=== PATIENT | female | born 1990 | race African-American/Black ===

== ENCOUNTER 2016-09-13 22:25 | Emergency (ER) | payer MEDICAID ==
[~2016-09-13] VITALS: Ht 160 cm; Wt 50.0 kg
[~2016-09-13 22:25] MED LIST: AUGM875T PO; DICL75 PO; VIST25CA PO
[2016-09-13 22:26] VITALS: BP 128/72; PULSE 98; RESP 18; TEMP 97.9; O2SAT 98
[2016-09-13] MEDS ORDERED: SODIUM CHLOR 0.9% 1000 ML INJ 1,000 ML IV ONE (22:45)
[2016-09-13] MEDS ORDERED: ONDANSETRON HCL 4 MG/2 ML VIAL IV PUSH ONE (22:45)
[2016-09-13] MEDS ORDERED: HYDROmorphone HCL PF 1 MG/ML VIAL IV PUSH ONE (22:45)
[2016-09-13] MEDS ORDERED: HYDROmorphone HCL PF 1 MG/ML VIAL IVS ONE (23:00)
[2016-09-13] MEDS ORDERED: BACITRACIN TOP OINT 15 GM TUBE TOPICAL ONE (23:15)
[2016-09-13] MEDS ORDERED: KETAMINE HCL 500 MG/5 ML VIAL IV PUSH ONE (23:45)
--- NOTE | 2016-09-13 23:52 | PD ---
HPI Chief Complaint: Burn Time Seen by Provider: 22:40 Travel History International Travel<30 days: No Contact w/Intl Traveler<30days: No Traveled to known affect area: No History of Present Illness HPI Is a 26-year-old right handed woman who presents to the emergency department with an acute burn to her right hand. She was working with vegetable oil when she scolded him for her right hand. She also burned a small area on her left foot. She complains of severe pain. This happened just prior to arrival. She is up-to-date on her tetanus. No other medical history. No other complaints. History Past Medical History Medical History: Denies Significant Hx Influenza Vaccination: No LMP: August 31 2016 : 3 Para: 3 Social History Alcohol Use: No Tobacco Use: No Allergies-Medications (Allergen,Severity, Reaction): Coded Allergies: *MDRO Multi-Drug Resistant Organism (Verified Allergy, Unknown, 09/13/16) MRSA Reported Meds & Prescriptions Reported Meds & Active Scripts Active No Active Prescriptions or Reported Medications Review of Systems Except as stated in HPI: all other systems reviewed are Neg Physical Exam Narrative GENERAL: Well-appearing 26 year-old woman, in obvious discomfort, nontoxic. SKIN: Warm and dry. CARDIOVASCULAR: Warm and well perfused. RESPIRATORY: Normal rate and effort. MUSCULOSKELETAL: Focused examination of the right hand reveals small area of blistering burning on the medial side of the thumb, probably secondary. Larger area of burn on the dorsum of the index finger, involving the proximal and mid phalanx extending over the IP joint and wrapping around to the underside of the finger involving the IP joint. The dorsal aspect of the hand is clearly third degree with blanching of the skin, insensate skin. The underside is more second -degree with blistering. There is also a small area of burn just on the medial aspect of the IP joint on the third digit with thick skin, blistering. Patient claims of decreased sensation in the same area that could represent third- degree burn. NEUROLOGICAL: Awake and alert. No gross deficits. Data Data Last Documented VS Vital Signs Date Time Temp Pulse Resp B/P Pulse Ox O2 Delivery O2 Flow Rate FiO2 09/13/16 22:26 97.9 98 18 128/72 98 Room Air Orders Iv Access Insert/Monitor (09/13/16 22:44) Hydromorphone Pf Inj (Dilaudid Pf Inj) (09/13/16 22:45) Ondansetron Inj (Zofran Inj) (09/13/16 22:45) Sodium Chlor 0.9% 1000 Ml Inj (Ns 1000 M (09/13/16 22:45) Hydromorphone Pf Inj (Dilaudid Pf Inj) (09/13/16 23:00) Bacitracin Oint (Baciguent Oint) (09/13/16 23:15) Ketamine Inj (Ketalar Inj) (09/13/16 23:45) MDM Medical Decision Making Medical Screen Exam Complete: Yes Emergency Medical Condition: Yes Differential Diagnosis Second-degree burn, third-degree burn, burn over joint Narrative Course Medical decision making Is a 26-year-old woman who presents to the emergency department with a burn to her right hand. She is evidence of third-degree burn overlying the IP joint on the index finger. I spoke with Dr. Herrera at [facility], burn center. Recommend evaluation tonight given third-degree burn on her right hand. Will be transferred for further evaluation. Patient was placed in the burn dressing with Xeroform gauze, bacitracin. Tetanus is up-to-date. Patient had severe pain, unrelieved despite 2 mg of IV Dilaudid. She was given 0.1 mg/kg of ketamine to assist in pain control. She'll be transported by EMS. Diagnosis Primary Impression: Third degree burn of right hand including fingers Scripts No Active Prescriptions or Reported Meds Disposition: 70 TRANSFER TO OTHER FACILITY Yovany Gilmore MD Sep 13, 2016 23:52
[2016-09-14] MEDS ORDERED: ONDANSETRON HCL 4 MG/2 ML VIAL IV ONE
== END 2016-09-14 02:28 | disposition short-term general hospital (02) ==
LOC: NEPE 22:25
DX: T23.391A Burn of third degree of multiple sites of right wrist and hand, initial encounter (principal); T25.022A Burn of unspecified degree of left foot, initial encounter; X10.2XXA Contact with fats and cooking oils, initial encounter
CPT/HCPCS: 96374; 96375; 96376; 99284; J1170; J2405; J7030

== ENCOUNTER 2016-12-09 11:46 | Emergency (ER) | payer MEDICAID ==
[~2016-12-09] VITALS: Ht 160 cm; Wt 50.5 kg
[2016-12-09 11:47] VITALS: BP 121/73; PULSE 86; RESP 14; TEMP 98.2; O2SAT 98
[2016-12-09] MEDS ORDERED: SODIUM CHLOR 0.9% 1000 ML INJ 1,000 ML IV ONE (12:05)
[2016-12-09] MEDS ORDERED: SODIUM CHLORIDE 0.9% FLUSH 10 ML FLUSH IVF PRN (12:15)
[2016-12-09] MEDS ORDERED: ONDANSETRON HCL 4 MG/2 ML VIAL IVP ONE (12:15)
--- NOTE | 2016-12-09 12:18 | PD ---
HPI Chief Complaint: GI Complaint Time Seen by Provider: 12:14 Travel History International Travel<30 days: No Contact w/Intl Traveler<30days: No Traveled to known affect area: No History of Present Illness HPI Patient is a 26-year-old female presenting to emergency for evaluation of nausea , vomiting, lightheadedness. Patient states her symptoms started approximately 945 this morning where she was at work. Patient works overnight at a [employer] facility, she went to her second job this morning and felt fine until that time. She does report eating at [employer] this morning she states this is a normal habit for her. She denies any abdominal pain, fevers, dysuria. She is otherwise healthy. Patient reports having a bilateral tubal ligation. [facility] Past Medical History Medical History: Denies Significant Hx Anemia: Yes Immunizations Current: Yes Tetanus Vaccination: Unknown ?: Not LMP: 11/29/16 : 3 Para: 3 Miscarriage: 0 : 0 Tubal Ligation: Yes Past Surgical History Section: Yes (x2) Other Surgery: Yes (lip, burn on rt index finger) Social History Alcohol Use: No Tobacco Use: No Substance Use: No Allergies-Medications (Allergen,Severity, Reaction): Coded Allergies: *MDRO Multi-Drug Resistant Organism (Verified Allergy, Unknown, 09/13/16) MRSA Reported Meds & Prescriptions Reported Meds & Active Scripts Active No Active Prescriptions or Reported Medications Review of Systems Except as stated in HPI: all other systems reviewed are Neg HENT: Positive: Lightheadedness Cardiovascular: No: Chest Pain or Discomfort Respiratory: No: Shortness of Breath Gastrointestinal: Positive: Nausea, Vomiting, No: Diarrhea, Abdominal Pain, Changes in Bowel Habits, Loss of Appetite Genitourinary: No: Dysuria Musculoskeletal: Positive: Myalgias Neurologic: Positive: Dizziness Physical Exam Narrative GENERAL: Thin, well-developed, alert female. Resting comfortably in no acute distress. SKIN: Focused skin assessment warm/dry. HEAD: Atraumatic. Normocephalic. EYES: Pupils equal and round. No scleral icterus. No injection or drainage. ENT: No nasal bleeding or discharge. Mucous membranes pink and moist. NECK: Trachea midline. No JVD. CARDIOVASCULAR: Regular rate and rhythm. No murmur appreciated. RESPIRATORY: No accessory muscle use. Clear to auscultation. Breath sounds equal bilaterally. GASTROINTESTINAL: Abdomen soft, non-tender, nondistended. Hepatic and splenic margins not palpable. MUSCULOSKELETAL: No obvious deformities. No clubbing. No cyanosis. No edema. NEUROLOGICAL: Awake and alert. No obvious cranial nerve deficits. Motor grossly within normal limits. Normal speech. PSYCHIATRIC: Appropriate mood and affect; insight and judgment normal. Data Data Last Documented VS Vital Signs Date Time Temp Pulse Resp B/P Pulse Ox O2 Delivery O2 Flow Rate FiO2 12/09/16 11:47 98.2 86 14 121/73 98 Orders Complete Blood Count With Diff (12/09/16 12:05) Comprehensive Metabolic Panel (12/09/16 12:05) Urinalysis - C+S If Indicated (12/09/16 12:05) Lipase (12/09/16 12:05) Iv Access Insert/Monitor (12/09/16 12:05) Ecg Monitoring (12/09/16 12:05) Oximetry (12/09/16 12:05) Ondansetron Inj (Zofran Inj) (12/09/16 12:15) Sodium Chlor 0.9% 1000 Ml Inj (Ns 1000 M (12/09/16 12:05) Sodium Chloride 0.9% Flush (Ns Flush) (12/09/16 12:15) Potassium Chloride (Kcl) (12/09/16 13:00) Labs Laboratory Tests Test 12/09/16 12/09/16 12:20 13:20 White Blood Count 6.7 TH/MM3 Red Blood Count 4.06 MIL/MM3 Hemoglobin 10.6 GM/DL Hematocrit 33.9 % Mean Corpuscular Volume 83.7 FL Mean Corpuscular Hemoglobin 26.2 PG Mean Corpuscular Hemoglobin 31.3 % Concent Red Cell Distribution Width 16.2 % Platelet Count 218 TH/MM3 Mean Platelet Volume 8.2 FL Neutrophils (%) (Auto) 64.6 % Lymphocytes (%) (Auto) 26.6 % Monocytes (%) (Auto) 8.1 % Eosinophils (%) (Auto) 0.2 % Basophils (%) (Auto) 0.5 % Neutrophils # (Auto) 4.4 TH/MM3 Lymphocytes # (Auto) 1.8 TH/MM3 Monocytes # (Auto) 0.5 TH/MM3 Eosinophils # (Auto) 0.0 TH/MM3 Basophils # (Auto) 0.0 TH/MM3 CBC Comment DIFF FINAL Differential Comment Sodium Level 140 MEQ/L Potassium Level 3.3 MEQ/L Chloride Level 107 MEQ/L Carbon Dioxide Level 25.4 MEQ/L Anion Gap 8 MEQ/L Blood Urea Nitrogen 10 MG/DL Creatinine 0.65 MG/DL Estimat Glomerular Filtration 132 ML/MIN Rate Random Glucose 76 MG/DL Calcium Level 8.7 MG/DL Total Bilirubin 0.4 MG/DL Aspartate Amino Transf 17 U/L (AST/SGOT) Alanine Aminotransferase 18 U/L (ALT/SGPT) Alkaline Phosphatase 67 U/L Total Protein 8.1 GM/DL Albumin 4.2 GM/DL Lipase 104 U/L Urine Color YELLOW Urine Turbidity HAZY Urine pH 7.5 Urine Specific [place] 1.017 Urine Protein TRACE mg/dL Urine Glucose (UA) NEG mg/dL Urine Ketones 80 mg/dL Urine Occult Blood NEG Urine Nitrite NEG Urine Bilirubin NEG Urine Urobilinogen LESS THAN 2.0 MG/DL Urine Leukocyte Esterase LARGE Urine RBC 1 /hpf Urine WBC 2 /hpf Urine Squamous Epithelial 11 /hpf Cells Urine Mucus FEW /lpf Microscopic Urinalysis Comment CULT NOT INDICATED MDM Medical Decision Making Medical Screen Exam Complete: Yes Emergency Medical Condition: Yes Interpretation(s) Vital Signs Date Time Temp Pulse Resp B/P Pulse Ox O2 Delivery O2 Flow Rate FiO2 12/09/16 11:47 98.2 86 14 121/73 98 Differential Diagnosis Food poisoning versus gastroenteritis versus cholecystitis versus viral syndrome versus electrolyte abnormality versus other Narrative Course Patient is a 26-year-old female that presented to emergency department for evaluation of acute onset of nausea and vomiting at work this morning. Patient' s vital signs are stable, labs ordered and pending. Abdominal exam is benign. Labs reviewed, no acute findings identified. Urinalysis unremarkable. Patient was given IV fluids and Zofran. Upon reassessment patient reports improvement in her symptoms. She states that she feels much better. She was encouraged to maintain a bland, low residue diet increasing as tolerated. She will be given a prescription for Zofran. She is encouraged to maintain adequate fluid intake. She was encouraged to return to emergency department immediately for any new or worsening symptoms. She verbalized understanding of instructions. Patient stable for discharge. Diagnosis Primary Impression: Nausea and vomiting Qualified Code: R11.2 - Non-intractable vomiting with nausea, unspecified vomiting type Referrals: Primary Care Physician Patient Instructions: Acute Nausea and Vomiting (ED), General Instructions Additional Instructions: Follow-up with your primary doctor Plan, low residue diet increase as tolerated Med/Other Pt SpecificInfo: Prescription(s) given Scripts Ondansetron Odt (Zofran Odt)4 Mg Tab4 Mg SL Q6HR PRN (Nausea/Vomiting) 3 Days Ref 0 Prov:Andie Lemus 12/09/16 Disposition: 01 DISCHARGE HOME Condition: Stable Andie Lemus Dec 09, 2016 12:18
[2016-12-09 12:31] LABS: AUTOMATED NEUTROPHIL # 4.4 TH/MM3 (1.8-7.7); BASOPHIL % 0.5 % (0.0-2.0); EOSINOPHIL % 0.2 % (0.0-4.0); HEMATOCRIT 33.9 % (35.0-46.0); HEMO FLAGS DIFF FINAL; LYMPH % 26.6 % (9.0-44.0); LYMPHOCYTE # 1.8 TH/MM3 (1.0-4.8); MEAN CELL VOLUME 83.7 FL (80.0-100.0); MEAN CORPUSCULAR HEMOGLOBIN 26.2 PG (27.0-34.0); MEAN CORPUSCULAR HGB CONC 31.3 % (32.0-36.0); MONO % 8.1 % (0.0-8.0); NEUT % 64.6 % (16.0-70.0); PLATELET COUNT 218 TH/MM3 (150-450); RED BLOOD COUNT 4.06 MIL/MM3 (4.00-5.30); RED CELL DISTRIBUTION WIDTH 16.2 % (11.6-17.2); WHITE BLOOD COUNT 6.7 TH/MM3 (4.0-11.0)
[2016-12-09 12:53] LABS: ALT (GPT) 18 U/L (10-53); ANION GAP 8 MEQ/L (5-15); AST (GOT) 17 U/L (15-37); BICARBONATE 25.4 MEQ/L (21.0-32.0); BLOOD UREA NITROGEN 10 MG/DL (7-18); CHLORIDE 107 MEQ/L (98-107); GLOMERULAR FILTRATION RATE 132 ML/MIN (>89); POTASSIUM 3.3 MEQ/L (3.5-5.1); SODIUM (NA) 140 MEQ/L (136-145)
[2016-12-09 12:55] LABS: ALKALINE PHOSPHATASE 67 U/L (45-117); TOTAL BILIRUBIN ADULT 0.4 MG/DL (0.2-1.0)
[2016-12-09] MEDS ORDERED: POTASSIUM CHLORIDE 10 MEQ CONTROLLED RELEASE TAB PO ONE (13:00)
[2016-12-09 13:26] LABS: BLOOD, URINE NEG (NEG); COMMENT (UR) CULT NOT INDICATED; CULTURE IF INDICATED CULT NOT INDICATED; GLUCOSE,URINE NEG (NEG); KETONE, URINE 80 mg/dL (NEG); MUCUS URINE FEW /lpf (OCC); NITRITE,URINE NEG (NEG); PH, URINE 7.5 (5.0-8.5); SQUAMOUS EPITHELIAL CELL URINE 11 /hpf (0-5); URINE COLOR YELLOW (YELLW/STRAW)
[2016-12-09] MEDS ORDERED: ZOFR4TAB3 SL (13:48)
[2016-12-09 14:00] VITALS: BP 122/73; PULSE 110; O2SAT 100
== END 2016-12-09 14:25 | disposition home or self-care (01) ==
LOC: NEPD 11:46
DX: R11.2 Nausea with vomiting, unspecified (principal)
CPT/HCPCS: 80053; 81001; 83690; 85025; 96374; 99284; J2405; J7030

== ENCOUNTER 2016-12-14 19:39 | Emergency (ER) | payer MEDICAID ==
[~2016-12-14 19:39] MED LIST changes: -AUGM875T PO; -DICL75 PO; -VIST25CA PO; +ZOFR4TAB3 SL
[2016-12-14 19:42] VITALS: BP 96/51; PULSE 63; RESP 16; TEMP 98.1; O2SAT 100
[2016-12-14] MEDS ORDERED: SODIUM CHLOR 0.9% 1000 ML INJ 1,000 ML IV SCH (20:41)
--- NOTE | 2016-12-14 20:41 | PD ---
HPI Chief Complaint: GI Complaint Time Seen by Provider: 20:33 Travel History International Travel<30 days: No Contact w/Intl Traveler<30days: No Traveled to known affect area: No History of Present Illness HPI HAS CONTINUED TO HAVE NAUSEA/VOMITING CONTINUING AFTER FINISHING ZOFRAN (SEEN ON DECEMBER 09). PATIENT FEELS BETTER AFTER VOMTING, AND DENIES ANY FEVER/DIARRHEA CURRENTLY PFSH Past Medical History Anemia: Yes Immunizations Current: Yes : 3 Para: 3 Miscarriage: 0 : 0 Tubal Ligation: Yes Past Surgical History Section: Yes (x2) Other Surgery: Yes (lip, burn on rt index finger) Social History Alcohol Use: No Tobacco Use: No Substance Use: No Allergies-Medications (Allergen,Severity, Reaction): Coded Allergies: *MDRO Multi-Drug Resistant Organism (Verified Allergy, Unknown, 12/14/16) MRSA Reported Meds & Prescriptions Reported Meds & Active Scripts Active Review of Systems Except as stated in HPI: all other systems reviewed are Neg Gastrointestinal: Positive: Nausea, Vomiting Physical Exam Narrative GENERAL: SKIN: Warm and dry. HEAD: Atraumatic. Normocephalic. EYES: Pupils equal and round. No scleral icterus. No injection or drainage. ENT: No nasal bleeding or discharge. Mucous membranes pink and moist. NECK: Trachea midline. No JVD. CARDIOVASCULAR: Regular rate and rhythm. RESPIRATORY: No accessory muscle use. Clear to auscultation. Breath sounds equal bilaterally. GASTROINTESTINAL: Abdomen soft, MILD EPIG TTP, nondistended. MUSCULOSKELETAL: Extremities without clubbing, cyanosis, or edema. No obvious deformities. NEUROLOGICAL: Awake and alert. No obvious cranial nerve deficits. Motor grossly within normal limits. Five out of 5 muscle strength in the arms and legs. Normal speech. PSYCHIATRIC: Appropriate mood and affect; insight and judgment normal. Data Data Last Documented VS Vital Signs Date Time Temp Pulse Resp B/P Pulse Ox O2 Delivery O2 Flow Rate FiO2 12/14/16 20:47 16 100 Room Air 12/14/16 19:42 98.1 63 96/51 Orders Complete Blood Count With Diff (12/14/16 20:41) Comprehensive Metabolic Panel (12/14/16 20:41) Lipase (12/14/16 20:41) Urinalysis - C+S If Indicated (12/14/16 20:41) Iv Access Insert/Monitor (12/14/16 20:41) Ecg Monitoring (12/14/16 20:41) Oximetry (12/14/16 20:41) NPO (12/14/16 20:41) Morphine Inj (Morphine Inj) (12/14/16 20:45) Ondansetron Inj (Zofran Inj) (12/14/16 20:45) Sodium Chlor 0.9% 1000 Ml Inj (Ns 1000 M (12/14/16 20:41) Ed Urine Pregnancytest Poc (12/14/16 20:41) Labs Laboratory Tests Test 12/14/16 20:40 White Blood Count 7.0 TH/MM3 Red Blood Count 4.09 MIL/MM3 Hemoglobin 10.9 GM/DL Hematocrit 33.9 % Mean Corpuscular Volume 82.7 FL Mean Corpuscular Hemoglobin 26.6 PG Mean Corpuscular Hemoglobin 32.2 % Concent Red Cell Distribution Width 16.8 % Platelet Count 233 TH/MM3 Mean Platelet Volume 8.2 FL Neutrophils (%) (Auto) 72.6 % Lymphocytes (%) (Auto) 19.7 % Monocytes (%) (Auto) 7.3 % Eosinophils (%) (Auto) 0.1 % Basophils (%) (Auto) 0.3 % Neutrophils # (Auto) 5.1 TH/MM3 Lymphocytes # (Auto) 1.4 TH/MM3 Monocytes # (Auto) 0.5 TH/MM3 Eosinophils # (Auto) 0.0 TH/MM3 Basophils # (Auto) 0.0 TH/MM3 CBC Comment DIFF FINAL Differential Comment Sodium Level 139 MEQ/L Potassium Level 3.9 MEQ/L Chloride Level 108 MEQ/L Carbon Dioxide Level 22.2 MEQ/L Anion Gap 9 MEQ/L Blood Urea Nitrogen 9 MG/DL Creatinine 0.61 MG/DL Estimat Glomerular Filtration 142 ML/MIN Rate Random Glucose 90 MG/DL Calcium Level 9.0 MG/DL Total Bilirubin 0.4 MG/DL Aspartate Amino Transf 19 U/L (AST/SGOT) Alanine Aminotransferase 16 U/L (ALT/SGPT) Alkaline Phosphatase 62 U/L Total Protein 8.0 GM/DL Albumin 4.3 GM/DL Lipase 103 U/L [facility] Medical Decision Making Medical Screen Exam Complete: Yes Emergency Medical Condition: Yes Medical Record Reviewed: Yes Differential Diagnosis ENTERITIS V GASTRITIS V DYSPEPTIC SYNDROM V PANCREATITIS V ELECTROLYTE ABNL Narrative Course TODAY IT WAS NOTED THAT PATIENT HAS A SLIGHT NEUTROPHILIA THAT WAS NOT PRESENT BEFORE...NO E/O PANCREATITIS/ELECTROLYTE ABNL/DEHYDRATION/ AT THIS POINT Diagnosis Primary Impression: BACTERIAL ENTERITIS Referrals: Rossana Mcrae MD call for appointment TO EVALUATE FOR PRESENCE OF ULCERS OR GASTRITIS WHICH IS SUSPECTED FOR YOU. Additional Instructions: PLEASE COMPLETE TREATMENT AND REFER TO FARNAZ (GI SPECIALIST) Scripts Ondansetron Odt (Zofran Odt)4 Mg Tab4 Mg SL Q6HR PRN (Nausea/Vomiting) #20 TAB Prov:Linden Johnson MD 12/14/16 Metronidazole (Flagyl)500 Mg [id number] Mg PO TID #15 TAB Prov:Linden Johnson MD 12/14/16 Ciprofloxacin 500 Mg [id number] Mg PO BID #10 TAB Prov:Linden Johnson MD 12/14/16 Disposition: 01 DISCHARGE HOME Condition: Stable Linden Johnson MD Dec 14, 2016 20:41
[2016-12-14] MEDS ORDERED: MORPHINE SULFATE 4 MG/ML INJ IV PUSH ONE (20:45)
[2016-12-14] MEDS ORDERED: ONDANSETRON HCL 4 MG/2 ML VIAL IVP ONE (20:45)
[2016-12-14 20:47] VITALS: RESP 16; O2SAT 100
[2016-12-14 21:03] LABS: AUTOMATED NEUTROPHIL # 5.1 TH/MM3 (1.8-7.7); BASOPHIL % 0.3 % (0.0-2.0); EOSINOPHIL % 0.1 % (0.0-4.0); HEMATOCRIT 33.9 % (35.0-46.0); HEMO FLAGS DIFF FINAL; LYMPH % 19.7 % (9.0-44.0); LYMPHOCYTE # 1.4 TH/MM3 (1.0-4.8); MEAN CELL VOLUME 82.7 FL (80.0-100.0); MEAN CORPUSCULAR HEMOGLOBIN 26.6 PG (27.0-34.0); MEAN CORPUSCULAR HGB CONC 32.2 % (32.0-36.0); MONO % 7.3 % (0.0-8.0); NEUT % 72.6 % (16.0-70.0); PLATELET COUNT 233 TH/MM3 (150-450); RED BLOOD COUNT 4.09 MIL/MM3 (4.00-5.30); RED CELL DISTRIBUTION WIDTH 16.8 % (11.6-17.2)
[2016-12-14 21:24] LABS: ANION GAP 9 MEQ/L (5-15); AST (GOT) 19 U/L (15-37); BICARBONATE 22.2 MEQ/L (21.0-32.0); BLOOD UREA NITROGEN 9 MG/DL (7-18); CHLORIDE 108 MEQ/L (98-107); GLOMERULAR FILTRATION RATE 142 ML/MIN (>89); POTASSIUM 3.9 MEQ/L (3.5-5.1); SODIUM (NA) 139 MEQ/L (136-145)
[2016-12-14 21:25] LABS: ALT (GPT) 16 U/L (10-53)
[2016-12-14 21:28] LABS: ALKALINE PHOSPHATASE 62 U/L (45-117); TOTAL BILIRUBIN ADULT 0.4 MG/DL (0.2-1.0)
[2016-12-14] MEDS ORDERED: ZOFR4TAB3 SL (21:56)
[2016-12-14] MEDS ORDERED: METR-1 PO (21:56)
[2016-12-14] MEDS ORDERED: CIPR500T2 PO (21:56)
== END 2016-12-14 23:14 | disposition home or self-care (01) ==
LOC: NEPC 19:39
DX: A04.9 Bacterial intestinal infection, unspecified (principal)
CPT/HCPCS: 80053; 83690; 85025; 96374; 96375; 99284; J2270; J2405; J7030

== ENCOUNTER 2016-12-15 18:08 | Emergency (ER) | payer MEDICAID ==
[~2016-12-15] VITALS: Ht 167.6 cm; Wt 50.0 kg
[~2016-12-15 18:08] MED LIST changes: +CIPR500T2 PO; +METR-1 PO
[2016-12-15 18:10] VITALS: BP 118/55; PULSE 55; RESP 14; TEMP 99.1; O2SAT 100
== END 2016-12-15 22:08 | disposition left against medical advice (07) ==
LOC: NED 18:08
DX: R10.9 Unspecified abdominal pain (principal); Z53.21 Procedure and treatment not carried out due to patient leaving prior to being seen by health care provider
CPT/HCPCS: 99281

== ENCOUNTER 2017-05-14 08:25 | Emergency (ER) | payer MEDICAID ==
[~2017-05-14] VITALS: Ht 160 cm; Wt 52.0 kg
[2017-05-14 08:27] VITALS: BP 102/63; PULSE 104; RESP 14; TEMP 98.9; O2SAT 98
[2017-05-14] MEDS ORDERED: SODIUM CHLOR 0.9% 1000 ML INJ 1,000 ML IV SCH (09:23)
[2017-05-14] MEDS ORDERED: LIDOCAINE VISCOUS 2% SOLN 15 ML UDC PO ONE (09:30)
[2017-05-14] MEDS ORDERED: FAMOTIDINE 20 MG/2 ML VIAL IV PUSH ONE (09:30)
[2017-05-14] MEDS ORDERED: ONDANSETRON HCL 4 MG/2 ML VIAL IVP ONE (09:30)
[2017-05-14] MEDS ORDERED: SODIUM CHLORIDE 0.9% FLUSH 10 ML FLUSH IV FLUSH PRN (09:30)
[2017-05-14] MEDS ORDERED: ALUMINUM/MAGNESIUM/SIMETH 30 ML CUP PO ONE (09:30)
[2017-05-14] MEDS ORDERED: SODIUM CHLOR 0.9% 1000 ML INJ 1,000 ML IV ONE (09:30)
--- NOTE | 2017-05-14 09:32 | PD ---
HPI Chief Complaint: GI Complaint Time Seen by Provider: 09:20 Travel History International Travel<30 days: No Contact w/Intl Traveler<30days: No Traveled to known affect area: No History of Present Illness HPI Patient is a 27-year-old female with history of C-sections in the past, presents to emergency room with complaints of nausea, vomiting and diarrhea. Patient reports that symptoms began yesterday afternoon, reports that she has been unable to keep down any fluids. Patient reports multiple episodes of vomiting and diarrhea, reports diffuse abdominal cramping. Patient reports that prior to her onset of symptoms, her 4-year-old daughter had similar symptoms. Patient denies any fevers, reports chills. Patient denies any recent travels or trips. Patient denies any chest pain or shortness of breath, denies any dysuria, urinary urgency or frequency. Patient with no other complaints at this time. PFSH Past Medical History Anemia: Yes Diminished Hearing: No Genitourinary: Yes Integumentary: Yes (ECZEMA) Immunizations Current: Yes ?: Not LMP: 04/18/17 : 3 Para: 3 Miscarriage: 0 : 0 Tubal Ligation: Yes Past Surgical History Section: Yes (x2) Hysterectomy: No Other Surgery: Yes (lip, burn on rt index finger) Social History Alcohol Use: No Tobacco Use: No (quit 1yr ago) Substance Use: No Allergies-Medications (Allergen,Severity, Reaction): Coded Allergies: *MDRO Multi-Drug Resistant Organism (Verified Allergy, Unknown, 12/14/16) MRSA Reported Meds & Prescriptions Reported Meds & Active Scripts Active Zofran (Ondansetron HCl) 4 Mg Tab 4 Mg PO Q6HR PRN Zofran Odt (Ondansetron Odt) 4 Mg Tab 4 Mg SL Q6HR PRN Flagyl (Metronidazole) 500 Mg Tab 500 Mg PO TID Ciprofloxacin (Ciprofloxacin HCl) 500 Mg Tab 500 Mg PO BID Review of Systems General / Constitutional: Positive: Chills, No: Fever Eyes: No: Visual changes HENT: No: Headaches Cardiovascular: No: Chest Pain or Discomfort, Palpitations, Irregular Rhythm, Tachycardia Respiratory: No: Cough, Shortness of Breath, Wheezing Gastrointestinal: Positive: Nausea, Vomiting, Diarrhea, Abdominal Pain, No: Constipation Genitourinary: No: Dysuria Musculoskeletal: No: Pain Skin: No Rash Neurologic: No: Weakness Psychiatric: No: Depression Endocrine: No: Polydipsia Hematologic/Lymphatic: No: Easy Bruising Physical Exam Narrative GENERAL: Moderate distress SKIN: Focused skin assessment warm/dry. HEAD: Atraumatic. Normocephalic. EYES: Pupils equal and round. No scleral icterus. No injection or drainage. ENT: No nasal bleeding or discharge. Mucous membranes pink and moist. NECK: Trachea midline. No JVD. CARDIOVASCULAR: Regular rate and rhythm. No murmur appreciated. RESPIRATORY: No accessory muscle use. Clear to auscultation. Breath sounds equal bilaterally. GASTROINTESTINAL: Abdomen soft, non-tender, nondistended. Hepatic and splenic margins not palpable. MUSCULOSKELETAL: No obvious deformities. No clubbing. No cyanosis. No edema. NEUROLOGICAL: Awake and alert. No obvious cranial nerve deficits. Motor grossly within normal limits. Normal speech. PSYCHIATRIC: Appropriate mood and affect; insight and judgment normal. Data Data Last Documented VS Vital Signs Date Time Temp Pulse Resp B/P (MAP) Pulse Ox O2 Delivery O2 Flow Rate FiO2 05/14/17 08:27 98.9 104 14 102/63 (76) 98 Orders Orders Complete Blood Count With Diff (05/14/17 09:23) Comprehensive Metabolic Panel (05/14/17 09:23) Urinalysis - C+S If Indicated (05/14/17 09:23) Iv Access Insert/Monitor (05/14/17 09:23) Ondansetron Inj (Zofran Inj) (05/14/17 09:30) Sodium Chlor 0.9% 1000 Ml Inj (Ns 1000 M (05/14/17 09:23) Sodium Chloride 0.9% Flush (Ns Flush) (05/14/17 09:30) Famotidine Inj (Pepcid Inj) (05/14/17 09:30) Al-Mag Hy-Si 40-40-4 Mg/Ml Liq (Mag-Al P (05/14/17 09:30) Lidocaine 2% Viscous (Xylocaine 2% Visco (05/14/17 09:30) Ed Urine Pregnancytest Poc (05/14/17 09:23) Sodium Chlor 0.9% 1000 Ml Inj (Ns 1000 M (05/14/17 09:30) Prochlorperazine Inj (Compazine Inj) (05/14/17 12:00) Dicyclomine (Bentyl) (05/14/17 12:00) Labs Laboratory Tests Test 05/14/17 09:40 05/14/17 11:10 White Blood Count 8.8 TH/MM3 Red Blood Count 4.46 MIL/MM3 Hemoglobin 12.4 GM/DL Hematocrit 38.5 % Mean Corpuscular Volume 86.4 FL Mean Corpuscular Hemoglobin 27.9 PG Mean Corpuscular Hemoglobin Concent 32.2 % Red Cell Distribution Width 16.6 % Platelet Count 263 TH/MM3 Mean Platelet Volume 8.2 FL Neutrophils (%) (Auto) 89.7 % Lymphocytes (%) (Auto) 5.8 % Monocytes (%) (Auto) 4.3 % Eosinophils (%) (Auto) 0.0 % Basophils (%) (Auto) 0.2 % Neutrophils # (Auto) 7.9 TH/MM3 Lymphocytes # (Auto) 0.5 TH/MM3 Monocytes # (Auto) 0.4 TH/MM3 Eosinophils # (Auto) 0.0 TH/MM3 Basophils # (Auto) 0.0 TH/MM3 CBC Comment DIFF FINAL Differential Comment Blood Urea Nitrogen 12 MG/DL Creatinine 0.75 MG/DL Random Glucose 88 MG/DL Total Protein 8.5 GM/DL Albumin 4.3 GM/DL Calcium Level 8.7 MG/DL Alkaline Phosphatase 72 U/L Aspartate Amino Transf (AST/SGOT) 19 U/L Alanine Aminotransferase (ALT/SGPT) 21 U/L Total Bilirubin 0.9 MG/DL Sodium Level 137 MEQ/L Potassium Level 3.7 MEQ/L Chloride Level 105 MEQ/L Carbon Dioxide Level 26.0 MEQ/L Anion Gap 6 MEQ/L Estimat Glomerular Filtration Rate 111 ML/MIN Urine Color YELLOW Urine Turbidity CLEAR Urine pH 6.0 Urine Specific [place] 1.021 Urine Protein NEG mg/dL Urine Glucose (UA) NEG mg/dL Urine Ketones 10 mg/dL Urine Occult Blood NEG Urine Nitrite NEG Urine Bilirubin NEG Urine Urobilinogen LESS THAN 2.0 MG/DL Urine Leukocyte Esterase NEG Urine RBC 1 /hpf Urine Squamous Epithelial Cells <1 /hpf Urine Mucus MANY /lpf Microscopic Urinalysis Comment CULT NOT INDICATED MDM Medical Decision Making Medical Screen Exam Complete: Yes Emergency Medical Condition: Yes Medical Record Reviewed: Yes Interpretation(s) Vital Signs Date Time Temp Pulse Resp B/P (MAP) Pulse Ox O2 Delivery O2 Flow Rate FiO2 05/14/17 08:27 98.9 104 14 102/63 (08) 78 Differential Diagnosis Gastritis, gastroenteritis, dehydration, electrolyte abnormality, viral syndrome Narrative Course Patient is a 27-year-old female who presents to emergency room complaints of nausea, vomiting and diarrhea for the past 2 days. She reports that her 4-year- old daughter was recently sick with a GI bug prior to the onset of her symptoms. Patient reports that she has been unable to keep down any fluids for the past 2 days, patient here for hydration and antiemetics. During the course of the patients emergency department visit, the patients history, examination, and differential diagnosis were reviewed with the patient. The patient was placed on a monitoring and evaluation advisor with oximetry and frequent blood pressure monitoring. The patient had an IV access obtained and blood work sent for analysis. The patient was initially provided with IV fluids, IV Zofran as well as IV Pepcid. GI cocktail was also provided for her. The patients laboratory studies were reviewed and remarkable for: CBC & BMP Diagram 05/14/17 09:40 Total Protein 8.5 H, Albumin 4.3, Calcium Level 8.7, Alkaline Phosphatase 72, Aspartate Amino Transf (AST/SGOT) 19, Alanine Aminotransferase (ALT/SGPT) 21, Total Bilirubin 0.9 Patient re-evaluated, still feeling nauseous, Compazine administered Patient reevaluated, patient feeling better after Compazine was administered. Abdomen is soft, nontender, nondistended, no peritoneal signs, patient will follow up with her pcp and will return to ER as needed. Signs and symptoms of acute abdomen was reviewed with patient and her family members. Patient understands when to return to the ER. Patient thankful for care Diagnosis Primary Impression: Nausea, vomiting and diarrhea Patient Instructions: General Instructions Additional Instructions: Please eat a bland diet and drink plenty of fluids Please follow up with your primary care doctor in 2-3 days Return to the ER if symptoms worsen or progress Return to the ER as needed Med/Other Pt SpecificInfo: Prescription(s) given Scripts Ondansetron (Zofran) 4 Mg Tab 4 MG PO Q6HR Y for NAUSEA OR VOMITING, #20 TAB 0 Refills Prov: Bhavya Vega DO 05/14/17 Disposition: 01 DISCHARGE HOME Condition: Stable Bhavya Vega DO May 14, 2017 09:32
[2017-05-14 10:05] LABS: AUTOMATED NEUTROPHIL # 7.9 TH/MM3 (1.8-7.7); BASOPHIL % 0.2 % (0.0-2.0); HEMATOCRIT 38.5 % (35.0-46.0); HEMO FLAGS DIFF FINAL; LYMPH % 5.8 % (9.0-44.0); LYMPHOCYTE # 0.5 TH/MM3 (1.0-4.8); MEAN CELL VOLUME 86.4 FL (80.0-100.0); MEAN CORPUSCULAR HEMOGLOBIN 27.9 PG (27.0-34.0); MEAN CORPUSCULAR HGB CONC 32.2 % (32.0-36.0); MONO % 4.3 % (0.0-8.0); NEUT % 89.7 % (16.0-70.0); PLATELET COUNT 263 TH/MM3 (150-450); RED BLOOD COUNT 4.46 MIL/MM3 (4.00-5.30); RED CELL DISTRIBUTION WIDTH 16.6 % (11.6-17.2); WHITE BLOOD COUNT 8.8 TH/MM3 (4.0-11.0)
[2017-05-14 10:31] LABS: ALT (GPT) 21 U/L (10-53); ANION GAP 6 MEQ/L (5-15); AST (GOT) 19 U/L (15-37); BLOOD UREA NITROGEN 12 MG/DL (7-18); CHLORIDE 105 MEQ/L (98-107); GLOMERULAR FILTRATION RATE 111 ML/MIN (>89); POTASSIUM 3.7 MEQ/L (3.5-5.1); SODIUM (NA) 137 MEQ/L (136-145)
[2017-05-14 10:33] LABS: ALKALINE PHOSPHATASE 72 U/L (45-117); TOTAL BILIRUBIN ADULT 0.9 MG/DL (0.2-1.0)
[2017-05-14 11:33] LABS: BLOOD, URINE NEG (NEG); COMMENT (UR) CULT NOT INDICATED; CULTURE IF INDICATED CULT NOT INDICATED; GLUCOSE,URINE NEG (NEG); KETONE, URINE 10 mg/dL (NEG); MUCUS URINE MANY /lpf (OCC); NITRITE,URINE NEG (NEG); SQUAMOUS EPITHELIAL CELL URINE <1 /hpf (0-5); URINE COLOR YELLOW (YELLW/STRAW)
[2017-05-14] MEDS ORDERED: ZOFR4TAB PO (11:51)
[2017-05-14] MEDS ORDERED: DICYCLOMINE HCL 10 MG CAP PO ONE (12:00)
[2017-05-14] MEDS ORDERED: PROCHLORPERAZINE INJ 10 MG/2 ML VIAL IV PUSH ONE (12:00)
== END 2017-05-14 13:05 | disposition home or self-care (01) ==
LOC: NEPD 08:25
DX: R11.2 Nausea with vomiting, unspecified (principal); R19.7 Diarrhea, unspecified
CPT/HCPCS: 80053; 81001; 84703; 85025; 96361; 96374; 96375; 99284; J0780; J2405; J7030

== ENCOUNTER 2017-08-16 07:26 | Emergency (ER) | payer SELFPAY ==
[~2017-08-16] VITALS: Ht 160 cm; Wt 52.0 kg
[~2017-08-16 07:26] MED LIST changes: +ZOFR4TAB PO
[2017-08-16 07:46] VITALS: BP 134/70; PULSE 97; RESP 16; TEMP 98.4; O2SAT 100
[2017-08-16] MEDS ORDERED: SODIUM CHLOR 0.9% 1000 ML INJ 1,000 ML IV SCH (08:01)
[2017-08-16] MEDS ORDERED: SODIUM CHLORIDE 0.9% FLUSH 10 ML FLUSH IV FLUSH PRN (08:15)
[2017-08-16] MEDS ORDERED: ONDANSETRON HCL 4 MG/2 ML VIAL IVP ONE (08:15)
--- NOTE | 2017-08-16 08:18 | PD ---
HPI Chief Complaint: GI Complaint Time Seen by Provider: 08:00 Travel History International Travel<30 days: No Contact w/Intl Traveler<30days: No Traveled to known affect area: No History of Present Illness HPI 27-year-old female presents emergency department with 5 day history of nausea, and intermittent lower abdominal cramping for the past 5 days. Patient states this morning she woke up and had vomitus 1. Patient states she has had her tubes tied in the past. Patient denies significant fever , chills, or urinary symptoms. She denies vaginal discharge. She has no upper respiratory symptoms. No cough or shortness of breath. Pain is intermittent and vague. 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 PFSH Past Medical History Hx Anticoagulant Therapy: No Anemia: Yes Cardiovascular Problems: No Chemotherapy: No Cerebrovascular Accident: No Diabetes: No Diminished Hearing: No Genitourinary: Yes Respiratory: No Integumentary: Yes (ECZEMA) Immunizations Current: Yes ?: Unknown LMP: 07/31/17 : 3 Para: 3 Miscarriage: 0 : 0 Tubal Ligation: Yes Past Surgical History Section: Yes (x2) Hysterectomy: No Other Surgery: Yes (lip, burn on rt index finger) Social History Alcohol Use: No Tobacco Use: No (quit 1yr ago) Substance Use: No Allergies-Medications (Allergen,Severity, Reaction): Coded Allergies: *MDRO Multi-Drug Resistant Organism (Verified Allergy, Unknown, 12/14/16) MRSA Reported Meds & Prescriptions Reported Meds & Active Scripts Active Zofran (Ondansetron HCl) 4 Mg Tab 4 Mg PO Q6HR PRN Zofran (Ondansetron HCl) 4 Mg Tab 4 Mg PO Q6HR PRN Zofran Odt (Ondansetron Odt) 4 Mg Tab 4 Mg SL Q6HR PRN Flagyl (Metronidazole) 500 Mg Tab 500 Mg PO TID Ciprofloxacin (Ciprofloxacin HCl) 500 Mg Tab 500 Mg PO BID Review of Systems Except as stated in HPI: all other systems reviewed are Neg General / Constitutional: Positive: Chills, No: Fever Eyes: No: Visual changes HENT: No: Headaches Cardiovascular: No: Chest Pain or Discomfort Respiratory: No: Shortness of Breath Gastrointestinal: Positive: Nausea, Vomiting, Abdominal Pain, Loss of Appetite , No: Diarrhea Genitourinary: No: Urgency, Frequency, Dysuria, Pelvic Pain, Flank Pain, Discharge, Vaginal Bleeding Musculoskeletal: No: Pain Skin: No Rash Neurologic: No: Weakness Psychiatric: No: Depression Endocrine: No: Polydipsia Hematologic/Lymphatic: No: Easy Bruising Physical Exam Narrative GENERAL: Patient appears mildly ill but not septic. SKIN: Warm and dry. Mildly decreased pallor, normal turgor. No diaphoresis per HEAD: Atraumatic. Normocephalic. EYES: Pupils equal and round. No scleral icterus. No injection or drainage. ENT: No nasal bleeding or discharge. Mucous membranes pink and moist. Pharynx is clear. Airways patent NECK: Trachea midline. Supple nontender. CARDIOVASCULAR: Regular rate and rhythm. RESPIRATORY: No accessory muscle use. Clear to auscultation. Breath sounds equal bilaterally. GASTROINTESTINAL: Abdomen soft, mildly diffusely tender somewhat more prominent in the suprapubic area, nondistended. Hepatic and splenic margins not palpable. No CVA tenderness. MUSCULOSKELETAL: Extremities without clubbing, cyanosis, or edema. No obvious deformities. NEUROLOGICAL: Awake and alert. No obvious cranial nerve deficits. Motor grossly within normal limits. Five out of 5 muscle strength in the arms and legs. Normal speech. PSYCHIATRIC: Appropriate mood and affect; insight and judgment normal. Data Data Last Documented VS Vital Signs Date Time Temp Pulse Resp B/P (MAP) Pulse Ox O2 Delivery O2 Flow Rate FiO2 08/16/17 08:20 16 99 Room Air 08/16/17 07:46 98.4 97 134/70 (91) Orders Orders Complete Blood Count With Diff (08/16/17 08:01) Comprehensive Metabolic Panel (08/16/17 08:01) Urinalysis - C+S If Indicated (08/16/17 08:01) Abdomen, Flat & Upright (08/16/17 ) Iv Access Insert/Monitor (08/16/17 08:01) Ecg Monitoring (08/16/17 08:01) Oximetry (08/16/17 08:01) Ondansetron Inj (Zofran Inj) (08/16/17 08:15) Sodium Chlor 0.9% 1000 Ml Inj (Ns 1000 M (08/16/17 08:01) Sodium Chloride 0.9% Flush (Ns Flush) (08/16/17 08:15) Ed Urine Pregnancytest Poc (08/16/17 08:01) Ondansetron Inj (Zofran Inj) (08/16/17 10:00) Labs Laboratory Tests Test 08/16/17 08:10 08/16/17 08:30 White Blood Count 8.5 TH/MM3 Red Blood Count 4.11 MIL/MM3 Hemoglobin 11.7 GM/DL Hematocrit 35.1 % Mean Corpuscular Volume 85.3 FL Mean Corpuscular Hemoglobin 28.5 PG Mean Corpuscular Hemoglobin Concent 33.4 % Red Cell Distribution Width 17.6 % Platelet Count 239 TH/MM3 Mean Platelet Volume 7.7 FL Neutrophils (%) (Auto) 77.8 % Lymphocytes (%) (Auto) 13.4 % Monocytes (%) (Auto) 8.3 % Eosinophils (%) (Auto) 0.1 % Basophils (%) (Auto) 0.4 % Neutrophils # (Auto) 6.6 TH/MM3 Lymphocytes # (Auto) 1.1 TH/MM3 Monocytes # (Auto) 0.7 TH/MM3 Eosinophils # (Auto) 0.0 TH/MM3 Basophils # (Auto) 0.0 TH/MM3 CBC Comment DIFF FINAL Differential Comment Blood Urea Nitrogen 8 MG/DL Creatinine 0.66 MG/DL Random Glucose 98 MG/DL Total Protein 8.7 GM/DL Albumin 4.4 GM/DL Calcium Level 8.9 MG/DL Alkaline Phosphatase 64 U/L Aspartate Amino Transf (AST/SGOT) 21 U/L Alanine Aminotransferase (ALT/SGPT) 17 U/L Total Bilirubin 0.4 MG/DL Sodium Level 138 MEQ/L Potassium Level 3.7 MEQ/L Chloride Level 107 MEQ/L Carbon Dioxide Level 24.5 MEQ/L Anion Gap 7 MEQ/L Estimat Glomerular Filtration Rate 129 ML/MIN Urine Color LIGHT-YELLOW Urine Turbidity CLEAR Urine pH 7.0 Urine Specific [place] 1.013 Urine Protein NEG mg/dL Urine Glucose (UA) NEG mg/dL Urine Ketones 10 mg/dL Urine Occult Blood NEG Urine Nitrite NEG Urine Bilirubin NEG Urine Urobilinogen LESS THAN 2.0 MG/DL Urine Leukocyte Esterase NEG Urine RBC LESS THAN 1 /hpf Urine WBC 1 /hpf Urine Squamous Epithelial Cells <1 /hpf Urine Hyaline Casts 1 /lpf Urine Mucus FEW /lpf Microscopic Urinalysis Comment CULT NOT INDICATED MDM Medical Decision Making Medical Screen Exam Complete: Yes Emergency Medical Condition: Yes Differential Diagnosis Acute nausea and vomiting. UTI. . Gastroenteritis. Narrative Course Patient is medically stable at time of exam. Labs ordered including CBC, CMP, urinalysis, lipase. IV access is obtained the patient is given 4 mg Zofran IV as well as 1000 mL's normal saline bolus. Abdominal pelvic x-ray ordered flat and upright. Patient is not by urinalysis. CBC, CMP, and urinalysis are within normal limits. Lipase is normal. X-ray is unremarkable for acute process per radiologist. Orthostatics were ordered. Orthostatics unremarkable. Patient is felt to have viral gastroenteritis. Patient will be treated with Zofran 4 mg every 6 hours as needed. Patient is to rest, push fluids, and follow-up if symptoms worsen as needed. Diagnosis Primary Impression: Viral gastroenteritis Patient Instructions: Acute Nausea and Vomiting (ED), Dehydration (ED), General Instructions Additional Instructions: Patient is felt to have viral gastroenteritis. Patient will be treated with Zofran 4 mg every 6 hours as needed. Patient is to rest, push fluids, and follow-up if symptoms worsen as needed. Med/Other Pt SpecificInfo: Prescription(s) given Scripts Ondansetron (Zofran) 4 Mg Tab 4 MG PO Q6HR Y for NAUSEA OR VOMITING, #20 TAB 0 Refills Prov: Rubio Heredia MD 08/16/17 Disposition: 01 DISCHARGE HOME Condition: Stable Franco Lebron Aug 16, 2017 08:18
[2017-08-16 08:20] VITALS: RESP 16; O2SAT 99
[2017-08-16 08:26] LABS: AUTOMATED NEUTROPHIL # 6.6 TH/MM3 (1.8-7.7); BASOPHIL % 0.4 % (0.0-2.0); EOSINOPHIL % 0.1 % (0.0-4.0); HEMATOCRIT 35.1 % (35.0-46.0); HEMOGLOBIN 11.7 GM/DL (11.6-15.3); LYMPH % 13.4 % (9.0-44.0); LYMPHOCYTE # 1.1 TH/MM3 (1.0-4.8); MEAN CELL VOLUME 85.3 FL (80.0-100.0); MEAN CORPUSCULAR HEMOGLOBIN 28.5 PG (27.0-34.0); MEAN CORPUSCULAR HGB CONC 33.4 % (32.0-36.0); MEAN PLATELET VOLUME 7.7 FL (7.0-11.0); MONO % 8.3 % (0.0-8.0); MONOCYTE # 0.7 TH/MM3 (0-0.9); NEUT % 77.8 % (16.0-70.0); PLATELET COUNT 239 TH/MM3 (150-450); RED BLOOD COUNT 4.11 MIL/MM3 (4.00-5.30); RED CELL DISTRIBUTION WIDTH 17.6 % (11.6-17.2); WHITE BLOOD COUNT 8.5 TH/MM3 (4.0-11.0)
[2017-08-16 08:57] LABS: ALBUMIN 4.4 GM/DL (3.4-5.0); ALT (GPT) 17 U/L (10-53); AST (GOT) 21 U/L (15-37); BICARBONATE 24.5 MEQ/L (21.0-32.0); BLOOD UREA NITROGEN 8 MG/DL (7-18); CALCIUM 8.9 MG/DL (8.5-10.1); CHLORIDE 107 MEQ/L (98-107); CREATININE 0.66 MG/DL (0.50-1.00); GLOMERULAR FILTRATION RATE 129 ML/MIN (>89); GLUCOSE,RANDOM 98 MG/DL (74-106); SODIUM (NA) 138 MEQ/L (136-145)
[2017-08-16 08:58] LABS: ALKALINE PHOSPHATASE 64 U/L (45-117); TOTAL BILIRUBIN ADULT 0.4 MG/DL (0.2-1.0); TOTAL PROTEIN 8.7 GM/DL (6.4-8.2)
--- NOTE | 2017-08-16 09:12 | RADRPT ---
EXAM DATE/TIME: 08/16/2017 08:56 [facility] COMPARISON: No previous studies available for comparison. INDICATIONS : Patient has been experiencing dizziness for 5 days and now presents with vomiting. MEDICAL HISTORY : None. SURGICAL HISTORY : section. Tubal ligation. ENCOUNTER: Initial ACUITY: 1 day PAIN SCORE: 3/10 LOCATION: abdomen FINDINGS: Supine and upright views of the abdomen were performed. The abdominal bowel gas pattern is normal. No air fluid levels are seen. No abnormal masses, calcifications, or organomegaly is seen. The visu alized lower lungs are clear. No evidence of free intraperitoneal gas. The osseous structures are u nremarkable. An S1 transitional vertebral body is noted. CONCLUSION: No acute disease. Jaime Asencio MD on August 16, 2017 at 9:09 Board Certified Radiologist. This report was verified electronically.
[2017-08-16 09:30] LABS: BILIRUBIN, URINE NEG (NEG); BLOOD, URINE NEG (NEG); GLUCOSE,URINE NEG (NEG); HYALINE CAST, URINE 1 /lpf (RARE); KETONE, URINE 10 mg/dL (NEG); MUCUS URINE FEW /lpf (OCC); NITRITE,URINE NEG (NEG); SQUAMOUS EPITHELIAL CELL URINE <1 /hpf (0-5); URINE COLOR LIGHT-YELLOW (YELLW/STRAW); URINE LEUKOCYTE ESTERASE NEG (NEG)
[2017-08-16 09:35] VITALS: BP_SYST 110; BP_SYST 116; BP_SYST 141; BP_DIAS 54; BP_DIAS 59; BP_DIAS 63; RESP 16; RESP 18
[2017-08-16] MEDS ORDERED: ZOFR4TAB PO (09:47)
[2017-08-16] MEDS ORDERED: ONDANSETRON HCL 4 MG/2 ML VIAL IV PUSH ONE (10:00)
== END 2017-08-16 10:08 | disposition home or self-care (01) ==
LOC: NEPD 07:26
DX: A08.4 Viral intestinal infection, unspecified (principal); L30.9 Dermatitis, unspecified
CPT/HCPCS: 74019; 80053; 81001; 84703; 85025; 96361; 96374; 96376; 99284; J2405; J7030

== ENCOUNTER 2017-10-22 09:12 | Emergency (ER) | payer SELFPAY ==
[~2017-10-22] VITALS: Ht 160 cm; Wt 50.0 kg
[2017-10-22 09:14] VITALS: BP 134/59; PULSE 91; RESP 16; TEMP 99.3; O2SAT 100
[2017-10-22 10:32] LABS: BILIRUBIN, URINE NEG (NEG); BLOOD, URINE SMALL (NEG); GLUCOSE,URINE NEG (NEG); KETONE, URINE NEG (NEG); MUCUS URINE MOD /lpf (OCC); NITRITE,URINE NEG (NEG); RENAL EPITHELIAL CELLS <1 /hpf; SQUAMOUS EPITHELIAL CELL URINE 4 /hpf (0-5); URINE COLOR YELLOW (YELLW/STRAW); URINE LEUKOCYTE ESTERASE NEG (NEG)
--- NOTE | 2017-10-22 11:08 | PD ---
HPI Chief Complaint: Abdominal Pain Time Seen by Provider: 09:22 Travel History International Travel<30 days: No Contact w/Intl Traveler<30days: No Traveled to known affect area: No History of Present Illness HPI This is a 27-year-old male who presents to the emergency department with lower abdominal cramping, feeling like a heavy period, intermittent associated with irregular menses and some vaginal discharge, intermittent. She was concerned she might be . She says that her menstrual cycle was longer and her blood was shoe laster than normal. She denies any lightheadedness or dizziness. She has had a bilateral tubal ligation in the past. She has had one sexual partner in the past 6 months. PFSH Past Medical History Hx Anticoagulant Therapy: No Anemia: Yes Cardiovascular Problems: No Chemotherapy: No Cerebrovascular Accident: No Diabetes: No Diminished Hearing: No Genitourinary: Yes Respiratory: No Integumentary: Yes (ECZEMA) Immunizations Current: Yes Tetanus Vaccination: < 5 Years Influenza Vaccination: No ?: Not LMP: 5 days ago : 3 Para: 3 Miscarriage: 0 : 0 Tubal Ligation: Yes Past Surgical History Cardiac Surgery: No Section: Yes (x2) Hysterectomy: No Other Surgery: Yes (lip, burn on rt index finger) Social History Alcohol Use: No Tobacco Use: Yes Substance Use: No Allergies-Medications (Allergen,Severity, Reaction): Coded Allergies: No Known Allergies (Unverified , 10/22/17) Reported Meds & Prescriptions Reported Meds & Active Scripts Active No Active Prescriptions or Reported Medications Review of Systems Except as stated in HPI: all other systems reviewed are Neg Physical Exam Narrative GENERAL:Well appearing, no acute distress SKIN: Focused skin assessment warm and dry. HEAD: Atraumatic. Normocephalic. EYES: Pupils equal and round. No injection or drainage. ENT: Moist mucous membranes NECK: Trachea midline. CARDIOVASCULAR: Regular rate and rhythm. No murmur appreciated. RESPIRATORY: Clear to auscultation. Breath sounds equal bilaterally. GASTROINTESTINAL: Abdomen soft, non-tender, nondistended. [employer]: Some pink discharge in the vault with no cervical motion or adnexal tenderness. MUSCULOSKELETAL: No obvious deformities. NEUROLOGICAL: Awake and alert. No obvious cranial nerve deficits. Moving all extremities. PSYCHIATRIC: Appropriate mood and affect; insight and judgment normal. Data Data Last Documented VS Vital Signs Date Time Temp Pulse Resp B/P (MAP) Pulse Ox O2 Delivery O2 Flow Rate FiO2 10/22/17 09:14 99.3 91 16 134/59 (84) 100 Orders Orders Urinalysis - C+S If Indicated (10/22/17 09:27) Wet Prep Profile (10/22/17 09:27) Gc And Chlamydia Pcr (10/22/17 09:27) Ed Urine Pregnancytest Poc (10/22/17 09:27) Labs Laboratory Tests Test 10/22/17 09:41 Urine Color YELLOW Urine Turbidity CLEAR Urine pH 6.0 Urine Specific [place] 1.024 Urine Protein NEG mg/dL Urine Glucose (UA) NEG mg/dL Urine Ketones NEG mg/dL Urine Occult Blood SMALL Urine Nitrite NEG Urine Bilirubin NEG Urine Urobilinogen LESS THAN 2.0 MG/DL Urine Leukocyte Esterase NEG Urine RBC 1 /hpf Urine WBC LESS THAN 1 /hpf Urine Squamous Epithelial Cells 4 /hpf Urine Renal Epithelial Cells <1 /hpf Urine Mucus MOD /lpf Microscopic Urinalysis Comment CULT NOT INDICATED Clue Cells (Wet Prep) NONE SEEN Vaginal Trichomonas (Wet Prep) NONE SEEN Vaginal Yeast (Wet Prep) NONE SEEN MDM Medical Decision Making Medical Screen Exam Complete: Yes Emergency Medical Condition: Yes Interpretation(s) Urinalysis is negative for infection Wet prep is negative Urine test is negative Differential Diagnosis Pelvic inflammatory disease, , dysmenorrhea Narrative Course This is a 27-year-old female who presents to the emergency department with abnormal vaginal discharge and menstrual cycle. She has a very benign physical exam with no abdominal discomfort. She has a normal pelvic exam. Urine test is negative and urinalysis is negative for infection. I think she can be discharged home and follow-up with her glue spreading machine operator. Diagnosis Primary Impression: Dysmenorrhea Patient Instructions: General Instructions Additional Instructions: If you develop fever, chills, severe abdominal pain, persistent vomiting or inability to eat return to the emergency department. Your pelvic exam today did not include a Pap smear. It is important to followup with a glue spreading machine operator on a yearly basis to be tested for cervical cancer as we do not do that from the emergency department. Med/Other Pt SpecificInfo: No Change to Meds Scripts No Active Prescriptions or Reported Meds Disposition: 01 DISCHARGE HOME Condition: Stable Julieta Cm MD October 22, 2017 11:08
[2017-10-22 11:15] VITALS: BP 118/77; TEMP 97.8
== END 2017-10-22 11:15 | disposition home or self-care (01) ==
LOC: NEPC 09:12
DX: N94.6 Dysmenorrhea, unspecified (principal); Z72.0 Tobacco use; Z98.51 Tubal ligation status
CPT/HCPCS: 81001; 84703; 87210; 87491; 87591; 99284